=== PATIENT | female | born 1950 | race Caucasian/White ===

== ENCOUNTER 2021-10-06 14:12 | Emergency (ER) | payer OTHER, SELFPAY ==
--- NOTE | ~2021-10-06 | XR_ITS ---
EXAMINATION: XR knee LT min 4V DATE: 10/06/2021 15:21 INDICATION: Left knee injury and pain. TECHNIQUE: 4 views of left knee were obtained. COMPARISON: None. FINDINGS: Bone alignment is normal. No fracture. There is mild tricompartmental osteoarthritis. There is a small knee joint effusion. IMPRESSION: 1. Mild left knee osteoarthritis. 2. Small left knee joint effusion. Reviewed, dictated and finalized at location A. [employer]
--- NOTE | 2021-10-06 14:27 | PC.NURSE ---
reg. stated requested to read paperwork before signing and to call insurance for coverage. is in waiting area.
--- NOTE | 2021-10-06 14:59 | ED.LOWEXIN ---
HPI - Extremity Injury (Lower) General Chief Complaint: Extremity Injury, Lower Stated Complaint: left knee pain Time Seen by Provider: 10/06/21 15:06 Source: patient, family and RN notes reviewed Mode of arrival: ambulatory Limitations: no limitations History of Present Illness HPI Narrative: Alexandra is a 70-year-old female patient who ambulated into the [facility] today. Patient is limping on the left leg. Patient states she stood and turned said she heard a snap in her left knee this am. Patient states pain at rest is a 6 out of 10. Patient states the 20 out of 10 if she is walking. She is complaining of pain on the left medial knee. Patient states she has not taking any medications or used any [id number] measures this morning. Patient states she has no no history of any orthopedic injuries. Related Data Home Medications Medication Instructions Recorded Confirmed No Home Medications 10/06/21 10/06/21 Allergies Allergy/AdvReac Type Severity Reaction Status Date / Time No Known Allergies Allergy Verified 10/06/21 14:17 Review of Systems Review of Systems: CONSTITUTIONAL: Denies body aches, fever, chills, or sweats. EYES: Denies visual changes, redness, or discharge. ENT: Denies rhinorrhea, congestion, sore throat, or otalgia. CARDIOVASCULAR: Denies chest pain, palpitations, or edema. RESPIRATORY: Denies cough or dyspnea. GASTROINTESTINAL: Denies abdominal pain, nausea, vomiting, or diarrhea. GENITOURINARY: Denies dysuria or hematuria. SKIN: Denies rash, itching, or wounds. MUSCULOSKELETAL: Denies back pain, + left knee pain NEUROLOGIC: Denies headache, numbness, tingling, or weakness. PSYCH: Denies depression or anxiety. All systems reviewed & are unremarkable except as noted in HPI and below PMFSH Comments At time of signature, I have reviewed and agree with nursing past medical, surgical, social and family history unless otherwise noted. Please see nursing chart for further information. There is no relevant family history pertinent to the presenting complaint Exam Narrative: GENERAL: Well-appearing, well-nourished, and in no acute distress. HEAD: Normocephalic, atraumatic. EYES: EOMI. No redness or drainage. Conjunctivae normal. ENT: Mucous membranes pink and moist. Nares clear. No rhinorrhea. TMs normal bilaterally. Throat normal. Uvula midline. NECK: Normal AROM. Supple. No lymphadenopathy. CHEST: No respiratory distress. Clear to auscultation. HEART: Regular rate and rhythm. No murmur appreciated. Normal peripheral pulses. ABDOMEN: Soft, nontender, nondistended, normal active bowel sounds. MUSCULOSKELETAL: No bony tenderness, negative Homans sign on left. EXTREMITIES: Normal range of motion. edema noted to medial left knee, negative anterior drawer test;normal alignment noted, normal ROM, skin pink warm and dry, no erythema SKIN: Warm, dry, no rash. Capillary refill normal. Normal skin turgor. NEURO: No focal deficits. Alert and oriented x3. Gait steady. PSYCH: Normal affect. No signs of depression or anxiety. Course Vital Signs Vital signs: Vital Signs Temperature 36.6 C 10/06/21 15:01 Pulse Rate 77 10/06/21 15:01 Respiratory Rate 18 10/06/21 15:01 Blood Pressure 143/67 H 10/06/21 15:01 Pulse Oximetry 100 10/06/21 15:01 Temperature 36.6 C 10/06/21 15:01 Pulse Rate 77 10/06/21 15:01 Respiratory Rate 18 10/06/21 15:01 Blood Pressure 143/67 H 10/06/21 15:01 Pulse Oximetry 100 10/06/21 15:01 Reviewed. Pt has been instructed to follow up with her PCP regarding her elevated blood pressure today. MDM - Extremity Injury (Lower) [facility] Narrative Medical decision making narrative: Knee X-Ray 10/06/21 15:22 IMPRESSION: 1. Mild left knee osteoarthritis. 2. Small left knee joint effusion. Differential Diagnosis Differential diagnosis: Likely ankle sprain and strain and acute internal derangement of knee (knee sprain) Medical Records Attestati
[2021-10-06 15:01] VITALS: BP 143/67; PULSE 77; RESP 18; TEMP 36.6; O2SAT 100
== END 2021-10-06 15:46 | disposition home or self-care (01) ==
PROVIDERS: Emergency Provider Nurse Practitioner Family
DX: S83.412A Sprain of medial collateral ligament of left knee, initial encounter (principal); X50.9XXA Other and unspecified overexertion or strenuous movements or postures, initial encounter
CPT/HCPCS: 73564; 99213; G0463